=== PATIENT | female | born 1975 | race Caucasian/White ===

== ENCOUNTER → 2016-07-09 | Outpatient (CLI) | payer OTHER | LOC: HYPER 07:07 → EDBD 07:07 → HYPER 13:47 | DX: T81.89XA Other complications of procedures, not elsewhere classified, initial encounter (principal); F17.210 Nicotine dependence, cigarettes, uncomplicated; Y83.8 Other surgical procedures as the cause of abnormal reaction of the patient, or of later complication, without mention of misadventure at the time of the procedure ==

== ENCOUNTER → 2016-07-23 | Outpatient (CLI) | payer OTHER | LOC: HYPER 07:05 | DX: T81.89XA Other complications of procedures, not elsewhere classified, initial encounter (principal); L76.32 Postprocedural hematoma of skin and subcutaneous tissue following other procedure; F17.210 Nicotine dependence, cigarettes, uncomplicated; F15.90 Other stimulant use, unspecified, uncomplicated; Z72.0 Tobacco use; Y83.8 Other surgical procedures as the cause of abnormal reaction of the patient, or of later complication, without mention of misadventure at the time of the procedure ==

== ENCOUNTER → 2016-08-06 | Outpatient (CLI) | payer OTHER | LOC: HYPER 07:16 | DX: T81.89XD Other complications of procedures, not elsewhere classified, subsequent encounter (principal); L76.32 Postprocedural hematoma of skin and subcutaneous tissue following other procedure; F17.210 Nicotine dependence, cigarettes, uncomplicated; Y83.8 Other surgical procedures as the cause of abnormal reaction of the patient, or of later complication, without mention of misadventure at the time of the procedure ==

== ENCOUNTER → 2016-08-26 | Outpatient (CLI) | payer OTHER | LOC: HYPER 08-21 07:20 | DX: T81.89XA Other complications of procedures, not elsewhere classified, initial encounter (principal); L76.32 Postprocedural hematoma of skin and subcutaneous tissue following other procedure; F17.200 Nicotine dependence, unspecified, uncomplicated; Y83.8 Other surgical procedures as the cause of abnormal reaction of the patient, or of later complication, without mention of misadventure at the time of the procedure ==

== ENCOUNTER → 2016-09-09 | Outpatient (CLI) | payer OTHER ==
[~2016-09-09] MED LIST: CYMBALTA60 MG PO; NORCO 5-325 TA1 EACH PO
== END ==
LOC: HYPER 07:08
DX: T81.89XD Other complications of procedures, not elsewhere classified, subsequent encounter (principal); L76.32 Postprocedural hematoma of skin and subcutaneous tissue following other procedure; F17.200 Nicotine dependence, unspecified, uncomplicated; Y83.8 Other surgical procedures as the cause of abnormal reaction of the patient, or of later complication, without mention of misadventure at the time of the procedure

== ENCOUNTER 2016-09-11 06:16 | Day surgery (SDC) | payer OTHER ==
[~2016-09-11] VITALS: Ht 177.8 cm; Wt 103.4 kg
--- NOTE | ~2016-09-11 | S ---
[facility] [place] [address] SURGICAL PATH RPT PROCEDURE Name: JAQUELIN HOWARD Room #: DEP [facility] [place] [facility] M.R.#: [id number] Admission: 09/11/16 Date of : 77 Discharge: 09/11/16 Report #: [id number] Path Case #: [id number] PATHOLOGY REPORT COLLECTION DATE: 09/11/2016 RECEIVED DATE: 09/11/2016 SUBMITTING PHYS: Dr. Larry Rocha OTHER PHYS: Dr. Tan Tan SPECIMEN(S) RECEIVED: A.Right calf wound base * * * * * * * * * * * * FINAL DIAGNOSIS: "Right calf wound base", debridement: - Skin and subcutaneous tissue with acute and chronic inflammation, necrosis, granulation tissue, fibrosis, fat necrosis and scant pseudoepitheliomatous hyperplasia. (CLW:[facility]; 09/15/2016) PATHOLOGIST: Dorcas Cruz M.D. REPORT ELECTRONICALLY SIGNED BY: Dorcas Cruz M.D. DATE/TIME: 09/15/2016 13:02 * * * * * * * * * * * * GROSS PATHOLOGY: The specimen is received in formalin, labeled "Jaquelin Howard, right calf wound base." Received are multiple fragments of light mckee to dusky melchor, glistening soft tissue measuring 5.9 x 3.3 x 1.8 cm in aggregate dimensions. The specimen is submitted representatively in cassette A1. ([facility]; 09/12/2016) CLINICAL HISTORY: Right calf wound INITIAL CPT CODE(S): A; 86993 Professional services performed by [facility] at [facility] [address], [place] [address] Technical services performed by [facility] at [address] [place] [id number]. [facility] [address] [place] [address] SURGICAL PATH RPT PROCEDURE Name: JAQUELIN HOWARD Room #: DEP [facility] [place] Marlene#: [id number] Admission: 09/11/16 Date of : 77 Discharge: 09/11/16 Report #: [id number] Path Case #: [id number] [facility] [address] [address] PHONE: [phone] DIRECTOR: Mark Ortiz M.D. * * * END OF REPORT * * *
[2016-09-11 11:31] LABS: HEMATOCRIT 44.4 % (37.0-47.0); HEMOGLOBIN 15.2 gm/dL (12.0-15.0)
[2016-09-11 12:06] VITALS: BP 125/79
[2016-09-11 14:47] VITALS: BP 125/79
== END 2016-09-11 15:35 | disposition home or self-care (01) ==
LOC: OR 06:16 → TBA 06:43 → OR 11:47
PROVIDERS: Otolaryngology
DX: S81.801A Unspecified open wound, right lower leg, initial encounter (principal); F17.210 Nicotine dependence, cigarettes, uncomplicated; X58.XXXA Exposure to other specified factors, initial encounter; Y93.89 Activity, other specified; Y92.89 Other specified places as the place of occurrence of the external cause; Y99.8 Other external cause status; Z90.49 Acquired absence of other specified parts of digestive tract; Z98.890 Other specified postprocedural states
CPT/HCPCS: 50010; 50101; 53353; 53354; 62110; 62900; 70005

== ENCOUNTER → 2016-09-23 | Outpatient (CLI) | payer OTHER | LOC: HYPER 07:15 | DX: T81.89XD Other complications of procedures, not elsewhere classified, subsequent encounter (principal); L76.32 Postprocedural hematoma of skin and subcutaneous tissue following other procedure; I87.2 Venous insufficiency (chronic) (peripheral); F17.200 Nicotine dependence, unspecified, uncomplicated; Y83.8 Other surgical procedures as the cause of abnormal reaction of the patient, or of later complication, without mention of misadventure at the time of the procedure ==

== ENCOUNTER → 2016-10-02 | Outpatient (CLI) | payer OTHER | LOC: HYPER 06:58 | DX: T81.89XD Other complications of procedures, not elsewhere classified, subsequent encounter (principal); I87.2 Venous insufficiency (chronic) (peripheral); L97.211 Non-pressure chronic ulcer of right calf limited to breakdown of skin; L76.32 Postprocedural hematoma of skin and subcutaneous tissue following other procedure; M79.89 Other specified soft tissue disorders; F17.200 Nicotine dependence, unspecified, uncomplicated; Y83.8 Other surgical procedures as the cause of abnormal reaction of the patient, or of later complication, without mention of misadventure at the time of the procedure ==

== ENCOUNTER → 2016-10-16 | Outpatient (CLI) | payer OTHER | LOC: HYPER 07:08 | DX: T81.89XD Other complications of procedures, not elsewhere classified, subsequent encounter (principal); I83.212 Varicose veins of right lower extremity with both ulcer of calf and inflammation; L97.211 Non-pressure chronic ulcer of right calf limited to breakdown of skin; L76.32 Postprocedural hematoma of skin and subcutaneous tissue following other procedure; M79.604 Pain in right leg; M79.89 Other specified soft tissue disorders; F17.200 Nicotine dependence, unspecified, uncomplicated; Y83.8 Other surgical procedures as the cause of abnormal reaction of the patient, or of later complication, without mention of misadventure at the time of the procedure ==

== ENCOUNTER → 2016-10-30 | Outpatient (CLI) | payer OTHER | LOC: HYPER 10-29 09:25 | DX: T81.89XD Other complications of procedures, not elsewhere classified, subsequent encounter (principal); I83.212 Varicose veins of right lower extremity with both ulcer of calf and inflammation; L97.211 Non-pressure chronic ulcer of right calf limited to breakdown of skin; L76.32 Postprocedural hematoma of skin and subcutaneous tissue following other procedure; M79.89 Other specified soft tissue disorders; F17.200 Nicotine dependence, unspecified, uncomplicated; Y83.8 Other surgical procedures as the cause of abnormal reaction of the patient, or of later complication, without mention of misadventure at the time of the procedure ==

== ENCOUNTER → 2016-11-19 | Outpatient (CLI) | payer OTHER | LOC: HYPER 06:48 | DX: T81.89XD Other complications of procedures, not elsewhere classified, subsequent encounter (principal); I83.212 Varicose veins of right lower extremity with both ulcer of calf and inflammation; L97.221 Non-pressure chronic ulcer of left calf limited to breakdown of skin; L76.32 Postprocedural hematoma of skin and subcutaneous tissue following other procedure; M79.89 Other specified soft tissue disorders; F17.200 Nicotine dependence, unspecified, uncomplicated; Y83.8 Other surgical procedures as the cause of abnormal reaction of the patient, or of later complication, without mention of misadventure at the time of the procedure ==

== ENCOUNTER → 2016-12-10 | Outpatient (CLI) | payer OTHER | LOC: HYPER 07:07 | DX: T81.89XD Other complications of procedures, not elsewhere classified, subsequent encounter (principal); I87.2 Venous insufficiency (chronic) (peripheral); I83.212 Varicose veins of right lower extremity with both ulcer of calf and inflammation; L97.811 Non-pressure chronic ulcer of other part of right lower leg limited to breakdown of skin; L76.32 Postprocedural hematoma of skin and subcutaneous tissue following other procedure; M79.604 Pain in right leg; M79.89 Other specified soft tissue disorders; F17.210 Nicotine dependence, cigarettes, uncomplicated; Y83.8 Other surgical procedures as the cause of abnormal reaction of the patient, or of later complication, without mention of misadventure at the time of the procedure ==

== ENCOUNTER → 2016-12-24 | Outpatient (CLI) | payer OTHER | LOC: HYPER 07:23 | DX: T81.89XD Other complications of procedures, not elsewhere classified, subsequent encounter (principal); I83.212 Varicose veins of right lower extremity with both ulcer of calf and inflammation; L97.211 Non-pressure chronic ulcer of right calf limited to breakdown of skin; L76.32 Postprocedural hematoma of skin and subcutaneous tissue following other procedure; F17.200 Nicotine dependence, unspecified, uncomplicated; Y83.8 Other surgical procedures as the cause of abnormal reaction of the patient, or of later complication, without mention of misadventure at the time of the procedure ==